=== PATIENT | female | born 1945 | race Caucasian/White ===

== ENCOUNTER 2017-08-10 10:02 | Day surgery (SDC) | payer MEDICARE ==
[~2017-08-10 10:02] MED LIST: Buffered Lidocaine 0.9% SYRIN* 5 ML/SYR SYRINGE INTRADERM ONE; Famotidine IV* 10 MG/ML 2 ML (20 mg) IV ONE; Metoclopramide TAB* 10 MG PO ONE
[2017-08-10] MEDS ORDERED: Metoclopramide TAB* 10 MG ONE (10:06)
[2017-08-10] MEDS ORDERED: Famotidine IV* 10 MG/ML 2 ML (20 mg) ONE (10:06)
[2017-08-10] MEDS ORDERED: Buffered Lidocaine 0.9% SYRIN* 5 ML/SYR SYRINGE ONE (10:07)
[2017-08-10] MEDS ORDERED: fentaNYL* 50 MCG/ML 2 ML VIAL (100 MCG VIAL) ONE (11:51)
[2017-08-10] MEDS ORDERED: Lidocaine 2% PF * 5 ML VIAL ONE (11:51)
[2017-08-10] MEDS ORDERED: Dexamethasone IV* 4 MG/ML 1 ML (4 MG) ONE (11:51)
[2017-08-10] MEDS ORDERED: Ondansetron INJ* 2 MG/ML VIAL ONE (11:51)
[2017-08-10] MEDS ORDERED: KETAMINE HCL* 50 MG/ML 10 ML VIAL ONE (11:51)
[2017-08-10] MEDS ORDERED: Midazolam* 1 MG/ML 5 ML VIAL (5 MG) ONE (11:51)
[2017-08-10] MEDS ORDERED: Propofol* 10 MG/ML 20 ML BTL IV PUSH ONE (11:51)
[2017-08-10] MEDS ORDERED: fentaNYL* 50 MCG/ML 2 ML VIAL (100 MCG VIAL) IV PRN (12:59)
[2017-08-10] MEDS ORDERED: Ondansetron INJ* 2 MG/ML VIAL IV PRN (12:59)
[2017-08-10] MEDS ORDERED: EPHEDrine (Pressors)* 50 MG/ML VIAL ONE (13:35)
[2017-08-10 14:09] VITALS: BP 106/55
--- NOTE | 2017-08-11 03:11 | PRO ---
Amended report to enter date of procedure. PROCEDURE REPORT: DATE OF PROCEDURE: 08/10/2017. PROCEDURE: Colonoscopy with polypectomy using cold forceps. NARRATIVE: This is a 72-year-old female with multiple comorbidities including history of multiple sclerosis, who presents to the GI lab for evaluation of positive Cologuard test. She had a colonoscopy in the past per report that revealed colonic polyps. MEDICATIONS GIVEN: Per Anesthesia record. DESCRIPTION OF PROCEDURE: After the risks and benefits of the procedure were discussed in detail, the patient verbalized understanding and agreed to the procedure. The procedure was done in the operating room given her multiple comorbidities and her need for extensive anesthesia. Informed consent was obtained. Time-out was performed. The patient was placed in left lateral decubitus position. Medications were given by the anesthesiologist and colonoscopy was then performed. Digital rectal examination was remarkable of perianal exam for large external anal skin tags. Rectal examination was remarkable for large internal hemorrhoids that were not thrombosed, appeared to be grade 3. Next, I advanced an adult video colonoscope to the terminal ileum with ease. The terminal ileum was intubated for approximately 5 cm and was completely normal. The cecum, which was identified by the appendiceal orifice and ileocecal valve appeared completely normal. The ascending colon, transverse colon, and descending colon were significantly angulated and tortuous. However, there was no evidence of polyps or diverticular disease. The descending colon and sigmoid colon again were significantly angulated and tortuous. In the rectum, there was a 5-mm sessile polyp and using a cold forceps, this was completely removed and retrieved. Post polypectomy, there was mild bleeding. Next, I elected to place 1 hemoclip over polypectomy site with no further bleeding post intervention. In the rectum, there was evidence of large internal hemorrhoids on retroflexion and forward views. The colonoscope was removed from the patient. The patient tolerated the procedure well. Bowel preparation overall was fair. After extensive suctioning, preparation was good. There were no immediate complications. The patient was transferred to the recovery area in stable condition. IMPRESSION: 1. Rectal polyp. 2. Tortuous colon. 3. Large internal hemorrhoids, grade 3. 4. Large external anal skin tags. RECOMMENDATION: 1. Follow up pathology. 2. Repeat colonoscopy if needed should be done with anesthesia staff [id number]/[facility] #: [id number] [facility]
== END 2017-08-10 14:33 | disposition home or self-care (01) ==
LOC: OR 10:02
PROVIDERS: ATTEND Internal Medicine
DX: K92.1 Melena (principal); R19.5 Other fecal abnormalities; D12.8 Benign neoplasm of rectum; K64.2 Third degree hemorrhoids; G35 Multiple sclerosis; E03.9 Hypothyroidism, unspecified; Z87.891 Personal history of nicotine dependence; I10 Essential (primary) hypertension; E78.00 Pure hypercholesterolemia, unspecified
CPT/HCPCS: 88305; A9270-GY; J1100; J2250; J2405; J2704; J3010